=== PATIENT | male | born 1945 | race Caucasian/White ===

== ENCOUNTER 2018-07-19 09:47 | Emergency (ER) | payer MEDICARE ==
[~2018-07-19] VITALS: Ht 177.8 cm; Wt 150.0 kg
[~2018-07-19 09:47] MED LIST: BENADRY2 EX; BENADRYL 50MG C50 MG PO
[2018-07-19] MEDS ORDERED: ALLOPURINOL100 MG PO (10:08)
[2018-07-19] MEDS ORDERED: BAYER CHEWABLE81 MG PO (10:08)
[2018-07-19] MEDS ORDERED: FUROSEMIDE40 MG PO (10:09)
[2018-07-19] MEDS ORDERED: LIPITOR40 M1 PO (10:09)
[2018-07-19] MEDS ORDERED: GLIPIZIDE5 MG PO (10:09)
[2018-07-19] MEDS ORDERED: METFORMIN500 MG PO (10:09)
[2018-07-19] MEDS ORDERED: CITALOPRAM20 MG PO (10:09)
[2018-07-19] MEDS ORDERED: LEVOTHYROXIN150 MCG PO (10:09)
[2018-07-19] MEDS ORDERED: TAMSULOSIN HCL0.4 MG PO (10:10)
[2018-07-19] MEDS ORDERED: METOPROL TAR25 MG PO (10:10)
[2018-07-19] MEDS ORDERED: COUMADIN5 MG PO (10:10)
[2018-07-19] MEDS ORDERED: WARFARIN2.5 MG PO (10:11)
[2018-07-19] MEDS ORDERED: TORADOL PO (11:07)
[2018-07-19 11:20] VITALS: BP 126/72
[2018-07-19] MEDS ORDERED: ASPIRIN CHEWABL81 MG PO (11:27)
== END 2018-07-19 11:20 | disposition home or self-care (01) ==
LOC: ED 09:47
DX: S86.911A Strain of unspecified muscle(s) and tendon(s) at lower leg level, right leg, initial encounter (principal); I10 Essential (primary) hypertension; I25.10 Atherosclerotic heart disease of native coronary artery without angina pectoris; E11.9 Type 2 diabetes mellitus without complications; X50.0XXA Overexertion from strenuous movement or load, initial encounter; X50.9XXA Other and unspecified overexertion or strenuous movements or postures, initial encounter